=== PATIENT | female | born 1965 | race Hispanic/Latino ===

== ENCOUNTER 2020-05-03 14:31 | Emergency (ER) | payer SELFPAY ==
[2020-05-03 15:05] VITALS: BP 136/72
[2020-05-03] MEDS ORDERED: ACETAMINOPHEN 500 MG TAB PO ONE (16:32)
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
== END 2020-05-03 18:10 | disposition home or self-care (01) ==
LOC: ED 14:31
DX: S16.1XXA Strain of muscle, fascia and tendon at neck level, initial encounter (principal); Z90.49 Acquired absence of other specified parts of digestive tract; Z98.890 Other specified postprocedural states; Z79.899 Other long term (current) drug therapy; V49.49XA Driver injured in collision with other motor vehicles in traffic accident, initial encounter; Y93.89 Activity, other specified; Y92.89 Other specified places as the place of occurrence of the external cause; Y99.8 Other external cause status
CPT/HCPCS: 72125; 99283